=== PATIENT | male | born 1975 | race Caucasian/White ===

== ENCOUNTER 2025-05-15 16:54 | Emergency (ER) | payer BC ==
[~2025-05-15] VITALS: Ht 172.7 cm; Wt 113.0 kg
[2025-05-15 16:59] VITALS: O2SAT 95
[2025-05-15] MEDS ORDERED: P20 PO (18:45)
[2025-05-15] MEDS: PREDNISONE 20MG TABLET PO ONE (19:12)
[2025-05-15 19:23] VITALS: BP 149/83; PULSE 60; RESP 16; TEMP 36.9; O2SAT 100
== END 2025-05-15 19:25 | disposition home or self-care (01) ==
LOC: ER 16:54
DX: R07.89 Other chest pain (principal); R05.9 Cough, unspecified; I10 Essential (primary) hypertension; Z79.52 Long term (current) use of systemic steroids; Z79.899 Other long term (current) drug therapy
CPT/HCPCS: 99283; 71045; 93005; J7512